=== PATIENT | male | born 1965 | race Hispanic/Latino ===

== ENCOUNTER 2017-07-06 09:30 | Emergency (ER) | payer OTHER ==
[~2017-07-06 09:30] MED LIST: ALLO100T PO; ATOR40TA71 PO; LISI40TA4 PO; METF500T6 PO; NAPR-1023 PO
[2017-07-06] MEDS ORDERED: DEXAMETHASONE SOD PHOSPHATE 10MG/ML 1ML VIAL ONE (10:23)
[2017-07-06] MEDS ORDERED: IPRATROPIUM/ALBUTEROL SULFATE 3 ML SOLUTION IH ONE ×2 (10:30→11:09)
== END 2017-07-06 11:29 | disposition home or self-care (01) ==
LOC: EDH 09:30
DX: J18.9 Pneumonia, unspecified organism (principal); J10.1 Influenza due to other identified influenza virus with other respiratory manifestations; R06.2 Wheezing; I10 Essential (primary) hypertension; E78.5 Hyperlipidemia, unspecified
CPT/HCPCS: 71020; 87804 ×2; 94640 ×2; 96372; 99285; J1100

== ENCOUNTER → 2018-08-27 | Outpatient (CLI) | payer OTHER ==
[~2018-08-27] MED LIST changes: +METF-444 PO; -METF500T6 PO
== END | disposition home or self-care (01) ==
LOC: RAH 10:36
PROVIDERS: ATTEND Internal Medicine
DX: E11.22 Type 2 diabetes mellitus with diabetic chronic kidney disease (principal); N18.9 Chronic kidney disease, unspecified; Z76.89 Persons encountering health services in other specified circumstances
CPT/HCPCS: 93922

== ENCOUNTER 2021-01-13 13:58 | Emergency (ER) | payer OTHER ==
[~2021-01-13] VITALS: Ht 175.3 cm; Wt 139.3 kg
[~2021-01-13 13:58] MED LIST changes: +0.9%NACL 50ML 50 ML IV ONE; +ALTEPLASE 100 MG VIAL IVP ONE; -LISI40TA4 PO; +LISI40TA9 PO
[2021-01-13 14:35] LABS: BASOPHILS % (AUTO) 0.6 % (0.0-5.0); EOSINOPHILS % (AUTO) 1.6 % (0.0-8.0); HEMATOCRIT 50.7 % (42-54); LYMPHOCYTES % (AUTO) 20.6 % (21.0-51.0); MEAN CORPUSCULAR HEMOGLOBIN 31.6 pg (27.0-33.0); MEAN CORPUSCULAR HGB CONC 34.1 g/dL (32.0-36.0); MEAN CORPUSCULAR VOLUME 92.7 fL (79-99); NEUTROPHILS % (AUTO) 68.8 % (40.0-77.0); PLATELET COUNT (AUTO) 241 K/uL (130-400); RED BLOOD CELL COUNT(AUTO) 5.47 MIL/uL (4.50-6.20); RED CELL DISTRIBUTION WIDTH 12.8 % (11.0-15.5); WHITE BLOOD COUNT (AUTO) 10.4 K/uL (4.8-10.8)
[2021-01-13] MEDS ORDERED: ASPIRIN 325 MG TABLET ONE (14:37)
[2021-01-13 14:56] LABS: CARBON DIOXIDE 25 mmol/L (21-32); CHLORIDE 103 mmol/L (101-111); CREATININE 1.1 mg/dL (0.5-1.5); GLOMERULAR FILTR. RATE CALC 74 mL/min (>60); GLUCOSE,RANDOM 239 mg/dL (70-105); POTASSIUM 3.9 mmol/L (3.5-5.1); SODIUM SERUM 139 mmol/L (136-145); UREA NITROGEN, BLOOD 20 mg/dL (7-18)
[2021-01-13 14:58] LABS: INR 1.02 (0.85-1.15); PROTHROMBIN TIME 11.1 SEC (9.6-11.6)
[2021-01-13] MEDS ORDERED: ASPIRIN 325 MG TABLET PO ONE (15:00)
[2021-01-13 15:16] LABS: ALANINE AMINOTRANSFERASE 89 U/L (12-78); ALBUMIN 3.8 g/dL (3.5-5.0); ASPARTATE AMINOTRANSFERASE 51 U/L (10-37); BILIRUBIN,TOTAL 0.9 mg/dL (0.2-1.0); CREATINE KINASE, TOTAL 44 U/L (21-232); MYOGLOBIN 32 ng/mL (10-92); TOTAL PROTEIN, SERUM 8.2 g/dL (6.0-8.3); TROPONIN I < 0.04 ng/mL (0.00-0.06)
[2021-01-13] MEDS ORDERED: IOHEXOL-350 75 ML VIAL IV ONE (15:29)
[2021-01-13] MEDS ORDERED: ALTEPLASE 100 MG VIAL IVP ONE (15:30)
[2021-01-13] MEDS ORDERED: LABETALOL 20MG SYG IV ONE ×2 (16:50→17:00)
[2021-01-13 17:46] VITALS: BP 176/99
[2021-01-13 19:09] VITALS: BP 164/86
[2021-01-13 19:50] VITALS: BP 149/84
[2021-01-13 21:27] VITALS: BP 137/92
== END 2021-01-14 01:46 | disposition home or self-care (01) ==
LOC: EDH 13:58
DX: I63.9 Cerebral infarction, unspecified (principal); I10 Essential (primary) hypertension; E10.9 Type 1 diabetes mellitus without complications; E66.01 Morbid (severe) obesity due to excess calories; E78.00 Pure hypercholesterolemia, unspecified; Z79.899 Other long term (current) drug therapy; Z79.84 Long term (current) use of oral hypoglycemic drugs; Z20.822 Contact with and (suspected) exposure to COVID-19
CPT/HCPCS: 36415; 70450; 70496; 70498; 80053; 82550; 83874; 84484; 85025; 85610; 85730; 87635; 92522; 92610; 93005; 96374; 96375; 99285; C9803; J2997; Q9967

== ENCOUNTER 2023-05-17 05:46 | Day surgery (SDC) | payer OTHER ==
[2023-05-11 16:47] VITALS: BP 192/103; PULSE 84; RESP 17
[~2023-05-17] VITALS: Ht 175.3 cm; Wt 134.3 kg
[~2023-05-17 05:46] MED LIST changes: -0.9%NACL 50ML 50 ML IV ONE; -ALTEPLASE 100 MG VIAL IVP ONE; +CLOP75TA32 PO; +EMPA10TA PO; +GLIP5TAB15 PO; +INSU300I SQ; -LISI40TA9 PO; -METF-444 PO; -NAPR-1023 PO; +PRAV40TA3 PO; +SEMA1PEN3 SQ; +TAMS-1 PO
== END 2023-05-17 16:47 | disposition home or self-care (01) ==
LOC: DAH 05:46 → ENDO 05:46
PROVIDERS: ATTEND Internal Medicine Gastroenterology
DX: Z01.812 Encounter for preprocedural laboratory examination (principal); R19.5 Other fecal abnormalities; E11.9 Type 2 diabetes mellitus without complications
CPT/HCPCS: 82948

== ENCOUNTER 2023-06-13 06:00 | Day surgery (SDC) | payer OTHER ==
[~2023-06-13] VITALS: Ht 175.3 cm; Wt 134.3 kg
[2023-06-13] VITALS (21 sets, daily range): BP systolic 161–201; BP diastolic 74–119; PULSE 71–86; RESP 12–20
[2023-06-13] MEDS ORDERED: PROPOFOL 10 MG/ML 20ML VIAL IV ONE (08:11)
[2023-06-13] MEDS ORDERED: LABETALOL 20MG SYG IV ONE (08:55)
[2023-06-13] MEDS ORDERED: HYDRALAZINE 20MG/ML VIAL ONE (09:06)
== END 2023-06-13 10:45 | disposition home or self-care (01) ==
LOC: DAH 06:00 → ENDO 06:00
PROVIDERS: ATTEND Internal Medicine Gastroenterology
DX: R19.5 Other fecal abnormalities (principal); D12.5 Benign neoplasm of sigmoid colon; D12.8 Benign neoplasm of rectum; K59.04 Chronic idiopathic constipation; I10 Essential (primary) hypertension; E78.5 Hyperlipidemia, unspecified; E11.9 Type 2 diabetes mellitus without complications; E66.01 Morbid (severe) obesity due to excess calories; Z86.73 Personal history of transient ischemic attack (TIA), and cerebral infarction without residual deficits; Z79.02 Long term (current) use of antithrombotics/antiplatelets; Z68.41 Body mass index [BMI] 40.0-44.9, adult; Z79.899 Other long term (current) drug therapy; Z79.01 Long term (current) use of anticoagulants
CPT/HCPCS: 82948 ×3; 45385; J0360; J2704; A4620; A4215 ×2; A4223; A7002; A4222; A4221; A4663; J7030; A4606; J3490

== ENCOUNTER → 2023-10-17 | Outpatient (CLI) | payer OTHER ==
[2023-10-17 22:07] VITALS: PULSE 74; RESP 20
[2023-10-17 22:33] VITALS: PULSE 74; RESP 16
[2023-10-17 23:05] VITALS: PULSE 76; RESP 18
[2023-10-17 23:30] VITALS: PULSE 79; RESP 18
[2023-10-18] VITALS (10 sets, daily range): PULSE 59–73; RESP 12–18
== END | disposition home or self-care (01) ==
LOC: SLP 20:20
PROVIDERS: ATTEND Family Medicine
DX: G47.33 Obstructive sleep apnea (adult) (pediatric) (principal)
CPT/HCPCS: 95810

== ENCOUNTER → 2023-10-23 | Outpatient (CLI) | payer OTHER ==
[2023-10-23 23:02] VITALS: PULSE 75; RESP 24
[2023-10-23 23:32] VITALS: PULSE 75; RESP 6
[2023-10-23 23:39] VITALS: PULSE 78; RESP 16
[2023-10-23 23:52] VITALS: PULSE 74; RESP 16
[2023-10-23 23:57] VITALS: PULSE 72; RESP 29
[2023-10-24] VITALS (14 sets, daily range): PULSE 65–78; RESP 5–34
== END | disposition home or self-care (01) ==
LOC: SLP 20:32
PROVIDERS: ATTEND Family Medicine
DX: G47.33 Obstructive sleep apnea (adult) (pediatric) (principal)
CPT/HCPCS: 95811